=== PATIENT | male | born 1945 | race Caucasian/White ===

== ENCOUNTER 2019-11-21 06:38 | Day surgery (SDC) | payer MEDICARE, BC, SELFPAY ==
[2019-11-21] VITALS (7 sets, daily range): BP systolic 96–140; BP diastolic 62–91; PULSE 61–74; RESP 16; TEMP 36.3–36.7; O2SAT 95–98; BMI 24.0
[2019-11-21] MEDS: Lactated Ringers 1,000 ML 100 ML IV (07:29)
[2019-11-21 07:36] LABS: Bedside Glucose 116 mg/dL (70-110)
--- NOTE | 2019-11-21 07:38 | H&P.OPEN ---
History of Present Illness Date of Admission: 11/21/19 The patient is a 74 year old M here for surveillance colonoscopy. The patient reports he has last colonoscopy 4 years ago. He was recommended to repeat in 4 years. He had one polyp removed at that time. He has a large family history of colon cancer in several first-degree and second degree relatives. He also complains of occasional blood in his stool. Past Medical/Surgical History - Planned Operation Planned Operative Procedure/s: cscope open access Date of Operative Procedure: 11/21/19 Permit Signed: No S.O.S: No Is This Patient Having a Total Joint: No - Previous Hospitalizations/Surgeries HX Hospitalizations: Yes - 20 yrs ago for chest pain HX of Surgeries: gallbladder. tonsillectomy. cataract bilat. right hand surgery. cscope multiple Any Problems With Anesthesia: No You/Your Family Experience Fever (Hyperthermia) With Anes: No Cholinesterase deficiency: No - Cardiovascular Hx Chest Pain within Last 2 months: No Hx of Irregular Heartbeat and/or Afib: No Hx Heart Attack: No Hx Congestive Heart Failure: No Hx Rheumatic Fever: No Hx Hypertension: Yes - controlled with med Hx Internal Defibrillator: No Hx Pacemaker: No Hx Cardiac Catheterization: No Hx Cardiac Surgery/Stents/Etc.: No Hx Stress Test: No HX Edema: No Hx Pain in Legs when Walking/Leg Cramps: Yes - occ night leg cramps - Respiratory Chronic Cough: No HX of Shortness of Breath: No Hoarseness: No Hx Chronic Obstructive Pulmonary Disease (COPD): No Hx Asthma: No Hx Emphysema: No Hx Sleep Apnea: No Hx Oxygen Use at Home: No Hx Respiratory Tract Infection/Cold (presently): No Do You Snore Loudly (louder than talking or can be heard): No Do You Often Feel Tired/ Fatigued/ Sleepy Dring Daytime?: Yes Has Anyone Observed You Stop Breathing During Sleep?: No Result (for STOP score): Positive Hx Smoking: No Smoking Status: Never smoker - Gastrointestinal Hx Gastroesophageal Reflux: Yes Controlled With Meds: Yes Hx Gastrointestinal Disorders: No Hx Gastrointestinal Bleed: No Hx Ulcer: No Hx Hiatal Hernia: No Difficulty Chewing/Swallowing: No Recent Onset of Swallowing Problems: No Special diet followed at home: Yes - ada Hx Unplanned Weight Loss of 20#: No HX Unplanned Weight Gain of 20#: No - Neurological Hx Seizures: No HX Syncope/Blackout Spells/Unconsciousness: No Hx CVA/Stroke: No Hx Transient Ischemic Attacks (TIA): No Hx Multiple Sclerosis: No Hx Parkinson's Disease: No Hx Head/Neck Injury: No Hx Headaches: Yes - occ Hx Back Injury/Pain: Yes - mild lower back pain/chronic Recent Onset of Speech Difficulty: No Restless Legs: No Does patient have nerve stimulator: No Patient instructed to have device shut off: No Rep notified?: No - Blood Disorder Hx Leukemia: No Bleeding Tendencies: No Hx Deep Vein Thrombosis: No Hx High Cholesterol: No Blood Transmitted Disease: No Hx Hepatitis: No Hx Cirrhosis: No Hx Anemia: No Hx Blood Disorders: No - Genitourinary Hx Renal Disease: No - enlarged prostate - Musculoskeletal Hx Arthritis: Yes Hx Rheumatoid Arthritis: No Hx Gout: No Recent Onset of an Orthopedic Problem: No - Endocrine Hx Diabetes: Yes Insulin: No Thyroid Disease: No Hx Steroid Therapy: No - Psycho/Social Hx Substance Use: No Hx Alcohol Use: No Hx Anxiety: No Hx Depression: No Mental Illness: No Hx Dementia: No - Miscellaneous Hx Cancer: Yes - skin Recent Exposure to Contagious Disease: No Active MRSA: No Hx of C-Diff: No Any Loose Teeth: No Allergies No Known Allergies Allergy (Verified 11/21/19 07:03) - Discharge Is Pt Admitted From a Alf, or a Half-Way: No Who Could Help: family After D/C, Where Do you Plan to Go: Return Home - From the PAT History Number of Risk Factors: 4 - Physical Exam Vitals/I&O's: Vital Signs Temp Pulse Resp BP Pulse Ox 97.3 F L 72 16 140/77 H 98 11/21/19 07:05 11/21/19 07:05 11/21/19 07:05 11/21/19 07:05 11/21/19 07:05 Oxygen Delivery Method Room Air Weight: 162 lb 7.691 oz Body Mass Index (BMI) 24.0 General: Alert, Oriented x3 Lungs: Normal air movement Cardiovascular: Regular rate, Regular Rhythm Abdomen: Soft, Non Tender, Non-Distended Laboratory Results 11/21/19 07:09: POC Glucose 116 H Current Medications Lactated Ringer's () 1,000 mls @ 100 mls/hr IV .Q10H CRISTINO Last Admin: 11/21/19 07:29 Dose: 100 mls/hr Documented by: Assessment/Plan 74-year-old male surveillance colonoscopy The patient has a history of colonoscopy with polypectomy [address] Copeland recommended repeat in 4 years. The patient has a heavy family history of colon cancer. Patient also reports occasional blood in his stool. He says he does have hemorrhoids. I explained endoscopy in detail to the patient. I explained the risks including but not limited to stroke or heart attack with anesthesia, perforation of the GI tract, bleeding, infection. I explained that any of these could necessitate further emergency surgery. The patient understands and all questions were answered sufficiently. The patient wishes to proceed with procedure. Vicente Hernandez MD Pager: [facility] [address] [place] [address] [address] [place] [address] Office: Surgery Risks - Colonoscopy Risks Include but are not Limited To: Risks include but are not limited to: Bleeding, perforation requiring further surgery, inability to complete colonoscopy requiring barium enema.
--- NOTE | 2019-11-21 08:13 | OP.COLON_ITS ---
Patient Name: Guille Gray Procedure Date: 11/21/2019 7:31 AM Date of : 1945 Age: 74 Procedure: Colonoscopy Indications: Family history of colon cancer in multiple first-degree relatives, Family history of colon cancer in multiple second-degree relatives Providers: Vicente Hernandez MD Referring MD: Patrick Rose Do Medicines: Monitored Anesthesia Care Patient Profile: This is a 74 year old male. Refer to note in patient chart for documentation of history and physical. Last Colonoscopy: more than 3 years ago. Complications: No immediate complications. Procedure: Pre-Anesthesia Assessment: - Prior to the procedure, a History and Physical was performed, and patient medications and allergies were reviewed. The patient's tolerance of previous anesthesia was also reviewed. The risks and benefits of the procedure and the sedation options and risks were discussed with the patient. All questions were answered, and informed consent was obtained. Prior Anticoagulants: The patient has taken no previous anticoagulant or antiplatelet agents. After reviewing the risks and benefits, the patient was deemed in satisfactory condition to undergo the procedure. After I obtained informed consent, the scope was passed under direct vision. Throughout the procedure, the patient's blood pressure, pulse, and oxygen saturations were monitored continuously. The colonoscope was introduced through the anus and advanced to the cecum, identified by appendiceal orifice and ileocecal valve. The colonoscopy was performed without difficulty. The patient tolerated the procedure well. The quality of the bowel preparation was good. Scope In: 8:00:14 AM Scope Withdrawal Time 0 hours 6 minutes 12 seconds Scope Out: 8:09:24 AM Total Procedure Duration Time 0 hours 9 minutes 10 seconds Findings: The entire examined colon appeared normal on direct and retroflexion views. Impression: - The entire examined colon is normal on direct and retroflexion views. - No specimens collected. Recommendation: - Discharge patient to home. - Resume previous diet. - Continue present medications. - Repeat colonoscopy in 5 years for surveillance. Procedure Code(s): --- Professional --- 69071, Colonoscopy, flexible; diagnostic, including collection of specimen(s) by brushing or washing, when performed (separate procedure) Diagnosis Code(s): --- Professional --- Z80.0, Family history of malignant neoplasm of digestive organs CPT copyright 2017 [employer]. All rights reserved. The codes documented in this report are preliminary and upon senior water resources engineer review may be revised to meet current compliance requirements. Vicente Hernandez MD 11/21/2019 8:13:06 AM This report has been signed electronically. Number of Addenda: 0 Note Initiated On: 11/21/2019 7:31 AM
--- NOTE | 2019-11-21 08:13 | OP.CCLET_ITS ---
11/21/2019 Patrick Rose, Re : Colonoscopy procedure for Guille Gray [place] This procedure was performed on Thursday, November 21, 2019. My impressions and recommendations are as follows: Impressions : - The entire examined colon is normal on direct and retroflexion views. - No specimens collected. Recommendations : - Discharge patient to home. - Resume previous diet. - Continue present medications. - Repeat colonoscopy in 5 years for surveillance. My findings are described in the full procedure note, which is enclosed. If I can be of further assistance, please feel free to contact me at Doctor phone number(s): , Work: . Sincerely, Vicente Hernandez MD 11/21/2019 8:13:06 AM This report has been signed electronically.
== END 2019-11-21 08:55 | disposition home or self-care (01) ==
LOC: EN 06:39 → AC 06:41
PROVIDERS: Family Provider Family Medicine; PCP Student in an Organized Health Care Education/Training Program; Referring Provider Student in an Organized Health Care Education/Training Program; Visit Provider Surgery
PROC: 0DJD8ZZ Inspection of Lower Intestinal Tract, Via Natural or Artificial Opening Endoscopic (ICD-10-PCS; CPT 45378; principal; 2019-11-21 07:55)
DX: Z12.11 Encounter for screening for malignant neoplasm of colon (principal); K92.1 Melena; K64.9 Unspecified hemorrhoids; E11.9 Type 2 diabetes mellitus without complications; I10 Essential (primary) hypertension; N40.0 Benign prostatic hyperplasia without lower urinary tract symptoms; K21.9 Gastro-esophageal reflux disease without esophagitis; Z79.84 Long term (current) use of oral hypoglycemic drugs; Z79.899 Other long term (current) drug therapy; Z86.010 Personal history of colon polyps; Z85.828 Personal history of other malignant neoplasm of skin; Z80.0 Family history of malignant neoplasm of digestive organs
CPT/HCPCS: G0105; 82962; J7120

== ENCOUNTER → 2022-02-20 | Outpatient (CLI) | payer MEDICARE, BC, SELFPAY | END | disposition home or self-care (01) | LOC: LABSPEC 10:11 | PROVIDERS: PCP Student in an Organized Health Care Education/Training Program; Referring Provider Dermatology; Visit Provider Dermatology | DX: J34.0 Abscess, furuncle and carbuncle of nose (principal); D48.5 Neoplasm of uncertain behavior of skin | CPT/HCPCS: 87070; 87077; 87186; 87205 ==

== ENCOUNTER 2024-10-20 06:43 | Day surgery (SDC) | payer MEDICARE, BC, SELFPAY ==
[2024-10-20] VITALS (8 sets, daily range): BP systolic 82–135; BP diastolic 60–79; PULSE 60–72; RESP 16; TEMP 36.4–36.6; O2SAT 94–99; BMI 23.8
--- NOTE | 2024-10-20 07:28 | PCM.PRE.AN2 ---
ASA Classification* ASA Classification ASA Classification: 2 Assessment & Plan Anesthesia* Anesthesia Assessment Anesthesia Assessment: Discussed sedation and/or anesthesia options, risks, benefits, and alternatives with patient/parents/legal guardian/POA. Questions invited. The patient/parents/legal guardian/POA seems to understand and agrees to proceed with anesthesia plan. Reviewed the physical assessment, medical history, allergy history and patient home medications list prior to surgery/procedure/anesthetic and documented any changes. Performed airway and anesthesia risk assessments. 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 When Was Last Pacemaker Check QUESTION #4 FULL TEXT: You/Your Family Experience fever (hyperthermia) with Anesthesia Last Oral Intake Last Oral intake: Last Oral Intake NPO since 19:30 10/20/24 07:08 Meds taken in AM with sips of Yes 10/20/24 07:08 water? 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 Female No 10/17/24 11:33 HX of Motion Sickness No 10/17/24 11:33 HX of N/V After Surgery No 10/17/24 11:33 Non-Smoker Yes 10/17/24 11:33 Duration of Surgery greater No 10/17/24 11:33 than 60 minutes Number of Risk Factors 1 10/17/24 11:33 PONV Score Low Risk 10/17/24 11:33 Height & Weight Height & Weight: Anesthesia: Height & Weight Height 5 ft 9 in 10/20/24 07:08 Weight: 73 kg 10/20/24 07:08 Body Mass Index (BMI) 23.8 10/20/24 07:08 Respiratory Assessment Respiratory Assessment - deburring and tooling machine operator: Respiratory Tract Infection Hx - deburring and tooling machine operator Hx Respiratory Tract Infection No 10/17/24 11:33 STOP Sleep Apnea STOP Sleep Apnea - deburring and tooling machine operator: STOP Sleep Apnea - deburring and tooling machine operator Hx Hypertension Yes: CONTROLLED WITH MEDS 10/17/24 11:33 Hx Sleep Apnea No 10/17/24 11:33 CPAP BIPAP Do you snore loudly (louder No 10/17/24 11:33 than talking or can be heard Do you often feel tired/ No 10/17/24 11:33 fatigued/ sleepy during daytime? Has anyone observed you stop No 10/17/24 11:33 breathing during sleep? STOP Results Negative 10/17/24 11:33 QUESTION #5 FULL TEXT : Do you snore loudly (louder than talking or can be heard through closed doors)? 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 Specify any problems Hx of Preganancy in last 3 N/A 10/17/24 11:33 Months Nurse Filling Out Transfusion [id number] 10/17/24 11:33 & Questions: Date: 10/17/24 10/17/24 11:33 Time: 11:38 10/17/24 11:33 Patient unable to answer at this time (ie. 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: /Reproductive Hx- deburring and tooling machine operator Hx Now Gestational Age (in weeks): EDC: Hx Hx Para Hx Section SAB PFSH Medical History (Updated 10/17/24 @ 11:42 by Misael Thomas) Fatty liver Leg cramps Dupuytren's contracture syndrome BPH (benign prostatic hyperplasia) GERD (gastroesophageal reflux disease) Diabetes HTN (hypertension) Home Medications ?Medication ?Instructions ?Recorded ?Last Taken ?Type doxazosin 2 mg tablet 2 mg PO DAILY 11/15/19 Unknown History finasteride 5 mg tablet 5 mg PO DAILY 11/15/19 Unknown History metformin 500 mg tablet,extended 1,000 mg PO BID 11/15/19 11/20/19 History release 24 hr losartan 50 mg tablet 50 mg PO DAILY 10/17/24 10/20/24 05:45 History omeprazole 40 mg capsule,delayed 40 mg PO DAILY 10/17/24 10/20/24 05:45 History release Allergy/AdvReac Type Severity Reaction Status Date / Time No Known Allergies Allergy Verified 10/20/24 07:04 Family History (Updated 09/28/24 @ 09:44 by Suzanne Purcell) Mother Colon cancer Hypertension Brother Colon cancer Father Bleeding disorder CVA (cerebral vascular accident) Surgical History H/O hand surgery S/P cataract extraction S/P laparoscopic cholecystectomy Social History (Updated 09/28/24 @ 09:45 by Suzanne Purcell) Smoking Status: Never smoker alcohol intake: never Review of Systems (Anesthesia) ROS Narrative System reviewed and no additional complaints, except as documented.
[2024-10-20 07:40] LABS: Bedside Glucose 157 mg/dL (74-106)
--- NOTE | 2024-10-20 07:57 | HP.PCM_ITS ---
History and Physical Date of Admission: 10/20/24 Intake Vital Signs 11/21/2006:05 09/28/2508:46 Height 5 ft 9 in 5 ft 9 in Weight: 172 lb BMI 25.4 BP 166/84 H Blood Pressure Location Rt brachial Position Sitting Respiration 16 Intake Visit Reasons: COLONOSCOPY Chief Complaint: c-scope Customer Support Specialist Required: No Is patient in pain?: No Allergies No Known Allergies Allergy (Verified 09/28/24 09:45) Medications ?Medication ?Instructions ?Recorded ?Confirmed ?Type doxazosin 2 mg tablet 2 mg PO DAILY 11/15/19 09/28/24 History finasteride 5 mg tablet 5 mg PO DAILY 11/15/19 09/28/24 History lisinopril 20 mg tablet 20 mg PO DAILY 11/15/19 09/28/24 History metformin 500 mg tablet,extended 500 mg PO BID 11/15/19 09/28/24 History release 24 hr omeprazole 20 mg capsule,delayed 20 mg PO DAILY 11/15/19 09/28/24 History release Have you fallen in the past year?: No PFSH Medical History (Updated 09/28/24 @ 09:[address] Vicente Hernandez MD) Dupuytren's contracture syndrome BPH (benign prostatic hyperplasia) GERD (gastroesophageal reflux disease) Diabetes HTN (hypertension) Surgical History (Updated 09/28/24 @ 09:44 by Suzanne Purcell) H/O hand surgery S/P cataract extraction S/P laparoscopic cholecystectomy Family History (Updated 09/28/24 @ 09:44 by Suzanne Purcell) Mother Colon cancer HypertensionBrother Colon cancerFather Bleeding disorder CVA (cerebral vascular accident) Social History (Updated 09/28/24 @ 09:45 by Suzanne Purcell) Smoking Status: Never smoker alcohol intake: never HPI HPI HPI: Patient is here for colonoscopy. His last colonoscopy was 5 years ago. He requires colonoscopies every 5 years due to high risk. He has a mother with colon cancer and multiple first-degree relatives with colon cancer. He denies abdominal pain or blood in the stool. ROS General General: No weight change, appetite, fatigue, colon cancer, breast cancer or weakness HEENT HEENT: No difficulty swallowing, eye injury, eye surgery, swollen glands or hoarseness Endo Endocrine: Yes diabetes mellitus; No thyroid disease, thyroid cancer, Hair loss, heat intolerance or cold intolerance Skin Skin: No rash or changing moles Breast Breast: No left breast lump, right breast lump, nipple discharge, breast pain, a bnormal mammogram, abnormal US or breast enlargement Musc Musculoskeletal: No back problems, arthritis, rheumatoid arthritis, gout or joint pain Cardio Cardiovascular: Yes high blood pressure; No murmur, pacemaker, heart disease, atrial fibrillation, heart attack, heart stent, palpitations, shortness of breat with exertion or chest pain Psych Psychiatric: No depression, anxiety or hearing voices Resp Respiratory: No shortness of breath, No sleep apnea, No cough, No COPD, No asthma, No emphysema and No wheezing Gastro Gastrointestinal: No abdominal pain, No nausea or vomiting, No diarrhea, No constipation, No blood in stool, Yes acid reflux, No hemorrhoids, No ulcers, No gallbladder problem and No black,tarry stools Dominik Hematologic: No blood thinners, No blood disorders, No bleeding, No anemia and No blood clots Neuro Neurologic: No system reviewed and no additional complaints, except as documented, No as per HPI, No abnormal gait, No abnormal hearing, No abnormal movements, No abnormal speech, No behavioral changes, No burning sensations, No confusion, No convulsions, No disequilibrium, No dizziness, No localized weakness, No frequent falls, No headache(s), No lack of coordination, No loss of vision, No memory loss, No numbness, No other visual disturbances, No radicular pain, No restless legs, No sensory deficit, No syncope, No tingling, No tremor(s), No weakness and No other Exam Const General: cooperative Orientation: alert and oriented x3 [facility] Head: normal to inspection Neck Neck: normal visual inspection and full ROM Chest Chest palpation & inspection: normal inspection of the chest Resp Effort & Inspection: normal respiratory effort Auscultation: clear to auscultation bilaterally Cardio Rate: regular rate Rhythm: regular rhythm GI Inspection: non-distended Palpation: soft and nontender Skin General: no rashes or lesions noted Neuro General: patient alert and patient oriented x3 Extrem General: full ROM Psych Appearance: grossly normal Mental Status: mental status grossly normal Assessment and Plan Assessment and Plan (1) Screen for colon cancer: Status: Acute Plan: The patient is high risk due to multiple family members with colon cancer. I recommend 1 more colonoscopy for screening purposes. I explained endoscopy in detail to the patient. I explained the risks including but not limited to stroke or heart attack with anesthesia, perforation of the GI tract, bleeding, infection. I explained that any of these could necessitate further emergency surgery. The patient understands and all questions were answered sufficiently. The patient wishes to proceed with procedure. Vicente Hernandez MD Pager: [facility] [address] [place] [address] [address] [place] [address] Office: I have examined the patient and the H&P has been reviewed. There are no clinical changes since date of exam.
--- NOTE | 2024-10-20 08:25 | OP.CCLET_ITS ---
10/20/2024 Patrick Rose Do Re : Colonoscopy procedure for Guille Gray [place] This procedure was performed on Sunday, October 20, 2024. My impressions and recommendations are as follows: Impressions : - The entire examined colon is normal on direct and retroflexion views. - No specimens collected. Recommendations : - Discharge patient to home. - Resume previous diet. - Continue present medications. - Repeat colonoscopy is not recommended due to current age (66 years or older) for screening purposes. My findings are described in the full procedure note, which is enclosed. If I can be of further assistance, please feel free to contact me at Doctor phone number(s): , Work: . Sincerely, Vicente Hernandez MD 10/20/2024 8:25:11 AM This report has been signed electronically.
--- NOTE | 2024-10-20 08:25 | OP.COLON_ITS ---
Patient Name: Guille Gray Procedure Date: 10/20/2024 8:01 AM Date of : 1945 Age: 79 Procedure: Colonoscopy Indications: Screening for colon cancer: Family history of colorectal cancer in multiple 2nd degree relatives Providers: Vicente Hernandez MD Referring MD: Patrick Rose Do Medicines: Propofol per Anesthesia Patient Profile: This is a 79 year old male. Refer to note in patient chart for documentation of history and physical. Last Colonoscopy: 5 years ago. Complications: No immediate complications. Procedure: Pre-Anesthesia Assessment: - Prior to the procedure, a History and Physical was performed, and patient medications and allergies were reviewed. The patient's tolerance of previous anesthesia was also reviewed. The risks and benefits of the procedure and the sedation options and risks were discussed with the patient. All questions were answered, and informed consent was obtained. Prior Anticoagulants: The patient has taken no anticoagulant or antiplatelet agents. After reviewing the risks and benefits, the patient was deemed in satisfactory condition to undergo the procedure. After I obtained informed consent, the scope was passed under direct vision. Throughout the procedure, the patient's blood pressure, pulse, and oxygen saturations were monitored continuously. The Colonoscope was introduced through the anus and advanced to the cecum, identified by appendiceal orifice and ileocecal valve. The colonoscopy was performed without difficulty. The patient tolerated the procedure well. The quality of the bowel preparation was good. The ileocecal valve, appendiceal orifice, and rectum were photographed. Scope In: 8:10:08 AM Scope Withdrawal Time 0 hours 6 minutes 6 seconds Scope Out: 8:18:46 AM Total Procedure Duration Time 0 hours 8 minutes 38 seconds Findings: The entire examined colon appeared normal on direct and retroflexion views. Impression: - The entire examined colon is normal on direct and retroflexion views. - No specimens collected. Recommendation: - Discharge patient to home. - Resume previous diet. - Continue present medications. - Repeat colonoscopy is not recommended due to current age (66 years or older) for screening purposes. Procedure Code(s): --- Professional --- 13074, Colonoscopy, flexible; diagnostic, including collection of specimen(s) by brushing or washing, when performed (separate procedure) Diagnosis Code(s): --- Professional --- Z80.0, Family history of malignant neoplasm of digestive organs CPT copyright 2021 [employer]. All rights reserved. The codes documented in this report are preliminary and upon fire operations forester review may be revised to meet current compliance requirements. Vicente Hernandez MD 10/20/2024 8:25:11 AM This report has been signed electronically. Number of Addenda: 0 Note Initiated On: 10/20/2024 8:01 AM
--- NOTE | 2024-10-20 08:30 | PCM.POST.ANE ---
Anesthesia: Postop Eval I Current Vital Signs Temperature: 97.6 F Pulse Rate: 70 Blood Pressure: 82/66 Respiratory Rate: 16 Pulse Ox: 99 Oxygen Delivery Method: Room Air Assessment Airway patent: Yes Spontaneous unlabored respirations: Yes Mental status: Awake and Calm nausea: No Vomiting: No Anesthesia Complication: No Fluid Hydration Crystalloid volume administer (ml): 40 Total IV fluid infused: 40 Progress Note Anesthesia document: Postop Eval 1 completed: Yes
--- NOTE | 2024-10-20 10:39 | PCM.POSTANE2 ---
Anesthesia Postop Eval I Sum Postop Eval Completion status Anesthesia document: Postop Eval 1 completed: Yes Anesthesia Postop Eval I Summary Anesthesia Postop Eval I Summary: Anesthesia Postop Eval I: Assessment Summary Airway patent Yes 10/20/24 08:31 [email or web address] Spontaneous unlabored Yes 10/20/24 08:31 [email or web address] respirations Mental status Awake,Calm 10/20/24 08:31 [email or web address] nausea No 10/20/24 08:31 [email or web address] Vomiting No 10/20/24 08:31 [email or web address] Anesthesia Postop Eval I: Fluid Summary Crystalloid volume administer 40 10/20/24 08:31 [email or web address] (ml) Colloids volume administered ( ml) Blood Product volume administered (ml) Total IV fluid infused 40 10/20/24 08:31 [email or web address] Anesthesia Postop Eval I: Summary Notes Anesthesia Complication No 10/20/24 08:31 [email or web address] Anesthesia Complication Comment: Post-operative progress note Anesthesia: Postop Eval II Evaluation Mental status: Awake Pain Level: 0 nausea: No Vomiting: No Complications Anesthesia Complication: No
== END 2024-10-20 09:02 | disposition home or self-care (01) ==
LOC: EN 06:43 → AC 06:44
PROVIDERS: PCP Student in an Organized Health Care Education/Training Program; Referring Provider Student in an Organized Health Care Education/Training Program; Visit Provider Surgery
PROC: 0DJD8ZZ Inspection of Lower Intestinal Tract, Via Natural or Artificial Opening Endoscopic (ICD-10-PCS; CPT 45378; principal; 2024-10-20 07:55)
DX: Z12.11 Encounter for screening for malignant neoplasm of colon (principal); E11.9 Type 2 diabetes mellitus without complications; Z80.0 Family history of malignant neoplasm of digestive organs; K21.9 Gastro-esophageal reflux disease without esophagitis; I10 Essential (primary) hypertension; Z79.899 Other long term (current) drug therapy
CPT/HCPCS: G0121; 82962; A4216; J2405